=== PATIENT | male | born 1985 | race Caucasian/White ===

== ENCOUNTER 2022-05-20 08:25 | Emergency (ER) | payer BC, SELFPAY ==
[2022-05-20 09:08] VITALS: BP 158/88; PULSE 69; RESP 16; TEMP 36.8; O2SAT 99; BMI 23.0
--- NOTE | 2022-05-20 09:09 | EXP.UTC ---
Discharge Plan Disposition Patient Disposition: Home, Self-Care Condition: Good Prescriptions Prescriptions: New famotidine 20 mg tablet 20 mg PO BID Qty: 60 0RF ondansetron 4 mg Tablet,Disintegrating 4 mg PO Q8H PRN (Reason: Nausea) Qty: 20 0RF dicyclomine 20 mg tablet 20 mg PO TID PRN (Reason: abdominal pain) Qty: 20 0RF No Action amoxicillin 500 mg capsule 500 mg PO TID 14 Days Qty: 42 0RF chlorhexidine gluconate [Peridex] 0.12 % mouthwash 15 ml buccal BIDP Qty: 473 0RF Referrals Follow up/Referrals: Vivek Burnham MD [Primary Care Provider] - See instructions Activity Restrictions/Add. Instructions Additional Instructions/Restrictions: Drink plenty of fluids. Take tylenol or ibuprofen for pain or fever. Take the medications as directed. Follow up with your regular doctor. GO TO THE ER FOR ANY WORSENING SYMPTOMS Clinical Impressions Clinical Impression: Gastritis Stand Alone Forms Stand Alone Forms: Work/School Release Instructions Patient Instructions: Gastritis, DI for Gastritis Discharge ED Provider: Gio Landry [facility] General Stated complaint: Abdominal pain Time Seen by Provider: 05/20/22 09:10 History of Present Illness Provider Complaint: He c/o abdominal pain for the past 2 days. He states that the pain has waxed and waned. Nothing that he can identify has helped the pain or caused it to be worse. He did start amoxicillin Related Data Previous Rx's Medication Instructions Recorded amoxicillin 500 mg capsule 500 mg PO TID 14 days #42 caps 05/14/22 chlorhexidine gluconate 0.12 % 15 ml buccal BIDP #473 mL 05/14/22 mouthwash (Peridex) dicyclomine 20 mg tablet 20 mg PO TID PRN abdominal pain 05/20/22 #20 tabs famotidine 20 mg tablet 20 mg PO BID #60 tabs 05/20/22 ondansetron 4 mg disintegrating 4 mg PO Q8H PRN Nausea #20 tabs 05/20/22 tablet Allergies Allergy/AdvReac Type Severity Reaction Status Date / Time No Known Allergies Allergy Verified 05/14/22 15:34 [facility] Surgical History H/O hernia repair Social History Smoking Status: Never smoker alcohol intake: never current occupational status: employed Travel in the last 8 weeks: None ROS Obtained: Yes All systems reviewed & no additional complaints except as documented Constitutional Constitutional: Denies chills, Denies fever(s) and Reports poor appetite ENT Ears, Nose, Mouth, and Throat: Denies dizziness and Denies sore throat Cardiovascular Cardiovascular: Denies dyspnea Respiratory Respiratory: Denies chest congestion, Denies cough and Denies dyspnea Genitourinary Male Genitourinary: Denies hematuria, Denies urinary frequency, Denies urinary hesitancy, Denies urinary incontinence and Denies urinary urgency Musculoskeletal Musculoskeletal: Denies arthralgias Integumentary/Breasts Skin/Breast: Denies rash Neurologic Neurologic: Denies dizziness Physical Exam General General appearance: alert and in no apparent distress Head Head exam: atraumatic and normocephalic Eye Eye exam: Present normal appearance, PERRL and EOMI ENT ENT exam: Present normal exam, normal oropharynx, mucous membranes moist, TM's normal bilaterally and normal external ear exam Neck Neck exam: Present normal inspection, full ROM and trachea midline; Absent tenderness, meningismus or lymphadenopathy Chest Chest inspection: Present normal inspection and symmetric chest wall rise; Absent tenderness, rash or abscess Respiratory Respiratory exam: Present normal lung sounds bilaterally; Absent respiratory distress, wheezes or stridor Cardiovascular Cardiovascular exam: Present regular rate and normal rhythm; Absent irregular rhythm, systolic murmur, diastolic murmur or JVD Abdominal Exam Abdominal exam: Present soft and normal bowel sounds; Absent distention, tenderness, guarding, rhett
--- NOTE | 2022-05-20 09:56 | PC.NURSE ---
Blood sent to lab
[2022-05-20 10:13] LABS: Basophils # 0.1 K/mm3 (0-0.2); Basophils % 1.6 % (0.1-2.0); Eosinophils # 0.4 K/mm3 (0.0-0.4); Eosinophils % 4.5 % (0.1-12.0); Hematocrit 43.6 % (42.0-52.0); Hemoglobin 14.5 g/dL (14.1-18.0); Lymphocytes # 2.3 K/mm3 (0.7-4.5); Lymphocytes % 24.9 % (10-50); Mean Corpuscular HGB Conc 33.4 g/dL (31.8-35.4); Mean Corpuscular Hemoglobin 30.8 pg (27.0-31.2); Mean Corpuscular Volume 92.3 fl (80-94); Mean Platelet Volume 7.4 fl (7.4-10.4); Monocytes # 0.7 K/mm3 (0.1-1.0); Monocytes % 7.1 % (1.7-9.3); Neutrophils # 5.7 K/mm3 (1.8-7.8); Platelet Count 436 K/mm3 (142-424); Red Blood Count 4.72 M/mm3 (4.60-6.20); Red Cell Distribution Width 13.5 % (11.5-17.5); White Blood Count 9.2 K/mm3 (4.8-10.8)
[2022-05-20 10:14] LABS: Alanine Aminotransferase 20 U/L (12-78); Albumin Level 4.5 g/dl (3.5-5.0); Albumin/Globulin Ratio 1.4 (1.1-1.8); Alkaline Phosphatase 72 U/L (38-126); Amylase 72 U/L (30-110); Anion Gap 14.2 mEq/L (5-15); Aspartate Amino Transferase 26 U/L (17-59); Bilirubin,Total 0.8 mg/dl (0.2-1.3); Blood Urea Nitrogen 12 mg/dl (9-20); Calcium 8.8 mg/dl (8.4-10.2); Carbon Dioxide 31 mmol/L (22.0-30.0); Chloride 98 mmol/L (98-107); Creatinine Clearance Estimated 154 mL/min (50-200); Estimated Glomerular Filt Rate 128 ml/min (>60); GFR (African American) 154 ML/MIN (>60); Globulin 3.2 g/dL (1.3-3.2); Glucose 92 mg/dl (74-100); Lipase 32 U/L (23-300); Potassium 4.2 mmoL/L (3.5-5.1); Sodium 139 mmol/L (136-145); Total Protein,Serum 7.7 g/dl (6.3-8.2)
[2022-05-20 10:50] VITALS: BP 158/88; PULSE 69; RESP 16; TEMP 36.8; O2SAT 99
== END 2022-05-20 10:50 | disposition home or self-care (01) ==
PROVIDERS: Emergency Provider Nurse Practitioner Family; PCP Internal Medicine Adolescent Medicine
DX: K29.70 Gastritis, unspecified, without bleeding (principal)
CPT/HCPCS: 80053; 82150; 83690; 85025; 99213; 99283; G0463

== ENCOUNTER 2022-06-14 13:36 | Emergency (ER) | payer BC, SELFPAY ==
[2022-06-14 13:49] VITALS: BP 149/92; PULSE 87; RESP 18; TEMP 36.7; O2SAT 100; BMI 23.0
--- NOTE | 2022-06-14 14:14 | EXP.UTC ---
Discharge Plan Disposition Patient Disposition: Home, Self-Care Condition: Good Prescriptions Prescriptions: New omeprazole 20 mg capsule,delayed release(DR/EC) 20 mg PO DAILY Qty: 30 5RF ondansetron 4 mg Tablet,Disintegrating 4 mg PO Q8H PRN (Reason: Nausea) Qty: 20 1RF No Action amoxicillin 500 mg capsule 500 mg PO TID 14 Days Qty: 42 0RF chlorhexidine gluconate [Peridex] 0.12 % mouthwash 15 ml buccal BIDP Qty: 473 0RF famotidine 20 mg tablet 20 mg PO BID Qty: 60 0RF ondansetron 4 mg Tablet,Disintegrating 4 mg PO Q8H PRN (Reason: Nausea) Qty: 20 0RF dicyclomine 20 mg tablet 20 mg PO TID PRN (Reason: abdominal pain) Qty: 20 0RF Referrals Follow up/Referrals: Provider,Referral, MD [Primary Care Provider] - See instructions Activity Restrictions/Add. Instructions Additional Instructions/Restrictions: Drink plenty of fluids. Take tylenol for pain. Take the medications as directed. Follow up with your regular doctor. GO TO THE ER FOR ANY WORSENING SYMPTOMS You can still take the bentyl (dicyclomine) if it helps. Stop the pepcid (famotidine) and start the prilosec (omeprazole). Clinical Impressions Clinical Impression: Abdominal pain Stand Alone Forms Stand Alone Forms: Work/School Release Instructions Patient Instructions: DI for Abdominal Pain-Adult Discharge ED Provider: Gio Landry [facility] General Stated complaint: stomach ache Mode of Arrival: Ambulatory Source of Information: Patient Limitations: No Limitations Time Seen by Provider: 06/14/22 14:15 Description of Symptoms (Recalled from Triage Doc. by RN): pt comes in with c/o abdominal pain. ongoing for 3 weeks. pt returning because his symptoms are no better. HEENT Symptoms (Recalled from RN notes): No Resp Symptoms (Recalled from RN notes): No Skin Symptoms (Recalled from RN notes): No MS Symptoms (Recalled from RN notes): No Functional Status (Recalled from RN notes): n/a History of Present Illness Provider Complaint: He is back to f/u over his abdominal pain. He was here about 3 weeks ago with similar symptoms. He has been having episodes of colicky abdominal pain. He states that the symptoms come and go. He cannot identify anything that makes it occur or get worse. He states that the famotidine did seem to help, but at times he is still having the pain. He has nausea with the pain. the zofran does help that significantly. He denies any fever or chills. He states that he has normal bowel movements regularly. His appetite is decreased at times. Related Data Previous Rx's Medication Instructions Recorded amoxicillin 500 mg capsule 500 mg PO TID 14 days #42 caps 05/14/22 chlorhexidine gluconate 0.12 % 15 ml buccal BIDP #473 mL 05/14/22 mouthwash (Peridex) dicyclomine 20 mg tablet 20 mg PO TID PRN abdominal pain 05/20/22 #20 tabs famotidine 20 mg tablet 20 mg PO BID #60 tabs 05/20/22 ondansetron 4 mg disintegrating 4 mg PO Q8H PRN Nausea #20 tabs 05/20/22 tablet omeprazole 20 mg capsule,delayed 20 mg PO DAILY #30 caps 06/14/22 release ondansetron 4 mg disintegrating 4 mg PO Q8H PRN Nausea #20 tabs 06/14/22 tablet Allergies Allergy/AdvReac Type Severity Reaction Status Date / Time No Known Allergies Allergy Verified 05/14/22 15:34 Worker's Comp Is this a Worker's Comp case?: No PFSH PFSH Surgical History H/O hernia repair Social History Smoking Status: Never smoker alcohol intake: never current occupational status: employed Travel in the last 8 weeks: None ROS Obtained: Yes All systems reviewed & no additional complaints except as documented Constitutional Constitutional: Denies chills, Denies fever(s) and Reports poor appetite ENT Ears, Nose, Mouth, and Throat: Denies dizziness and Denies sore throat Cardiovascular Cardiovascular: Denies dyspne
[2022-06-14 15:09] VITALS: BP 149/92; PULSE 87; RESP 18; TEMP 36.7
== END 2022-06-14 15:10 | disposition home or self-care (01) ==
PROVIDERS: Emergency Provider Nurse Practitioner Family
DX: R10.9 Unspecified abdominal pain (principal)
CPT/HCPCS: 99212; G0463